=== PATIENT | female | born 2000 | race African-American/Black ===

== ENCOUNTER 2020-04-20 14:47 | Emergency (ER) | payer OTHER ==
[~2020-04-20] VITALS: Ht 160 cm; Wt 63.5 kg
[2020-04-20] MEDS ORDERED: RT-ALBUTEROL/IPRATROPIUM 3 ML (DUONEB) VIAL ONE (14:49)
[2020-04-20 14:55] VITALS: BP 129/79
--- NOTE | 2020-04-20 14:58 | ED Cough/URI ---
General Stated Complaint: ASTHMA ATTACK Source: patient, EMS Exam Limitations: no limitations History of Present Illness Date Seen by Provider: Apr 20, 2020 Time Seen by Provider: 14:49 Initial Comments To ER by [facility] with reports of asthma exacerbation. History of asthma. Has an inhaler at home. She was cooking when it became smoky and this incited AN asthma attack. She was unable to control this with her inhaler at home. EMS arrived and gave an albuterol treatment. Patient also states that she has a history of hypokalemia. She would like to have her potassium checked. Timing/Duration: constant Severity/Quality: moderate Associated Symptoms: cough, wheezing Allergies and Home Medications Allergies Coded Allergies: ceftriaxone (Verified Allergy, Unknown, 04/20/20) promethazine (Verified Allergy, Unknown, 04/20/20) Patient Home Medication List Home Medication List Reviewed: Yes Review of Systems Review of Systems Constitutional: see HPI EENTM: see HPI Respiratory: see HPI, cough, wheezing Cardiovascular: no symptoms reported Genitourinary: no symptoms reported Musculoskeletal: no symptoms reported Skin: no symptoms reported Psychiatric/Neurological: No Symptoms Reported Physical Exam Vital Signs - First Documented 04/20/20 04/20/20 14:55 15:08 Temp 36.6 Pulse 128 Resp 21 B/P (MAP) 129/79 (96) Pulse Ox 100 O2 Delivery Room Air Capillary Refill : Height: '" Weight: lbs. oz. kg; BMI Method: General Appearance: WD/WN, no apparent distress, other (She is in no respiratory distress oxygen saturation 100% on room air though she does have a persistent and intrusive cough. She has good air movement without wheezing.) Eyes: Bilateral Eye Normal Inspection, Bilateral Eye PERRL Neck: non-tender, full range of motion Respiratory: no respiratory distress, no accessory muscle use; No wheezing Gastrointestinal: normal bowel sounds, soft Extremities: normal range of motion, non-tender Neurologic/Psychiatric: alert, normal mood/affect, oriented x 3 Skin: normal color, warm/dry Progress/Results/Core Measures Suspected Sepsis SIRS Temperature: Pulse: Respiratory Rate: Laboratory Tests 04/20/20 15:17: White Blood Count 6.3 Blood Pressure / Mean: Laboratory Tests 04/20/20 15:17: Creatinine 0.88, Platelet Count 219 Results/Orders Lab Results Laboratory Tests Test 04/20/20 15:17 Range/Units White Blood Count 6.3 4.3-11.0 10^3/uL Red Blood Count 5.02 3.80-5.11 10^6/uL Hemoglobin 13.9 11.5-16.0 g/dL Hematocrit 42 35-52 % Mean Corpuscular Volume 84 80-99 fL Mean Corpuscular Hemoglobin 28 25-34 pg Mean Corpuscular Hemoglobin Concent 33 32-36 g/dL Red Cell Distribution Width 12.2 10.0-14.5 % Platelet Count 219 130-400 10^3/uL Mean Platelet Volume 9.5 9.0-12.2 fL Immature Granulocyte % (Auto) 1 % Neutrophils (%) (Auto) 46 42-75 % Lymphocytes (%) (Auto) 46 H 12-44 % Monocytes (%) (Auto) 7 0-12 % Eosinophils (%) (Auto) 1 0-10 % Basophils (%) (Auto) 0 0-10 % Neutrophils # (Auto) 2.9 1.8-7.8 10^3/uL Lymphocytes # (Auto) 2.9 1.0-4.0 10^3/uL Monocytes # (Auto) 0.4 0.0-1.0 10^3/uL Eosinophils # (Auto) 0.1 0.0-0.3 10^3/uL Basophils # (Auto) 0.0 0.0-0.1 10^3/uL Immature Granulocyte # (Auto) 0.0 0.0-0.1 10^3/uL Sodium Level 141 135-145 MMOL/L Potassium Level 2.9 L 3.6-5.0 MMOL/L Chloride Level 109 H 98-107 MMOL/L Carbon Dioxide Level 18 L 21-32 MMOL/L Anion Gap 14 5-14 MMOL/L Blood Urea Nitrogen 12 7-18 MG/DL Creatinine 0.88 0.60-1.30 MG/DL Estimat Glomerular Filtration Rate > 60 BUN/Creatinine Ratio 14 Glucose Level 107 H 70-105 MG/DL Calcium Level 9.2 8.5-10.1 MG/DL My Orders Orders - SHIRA PIERRE APRN Chest 1 View, Ap/Pa Only (04/20/20 14:52) Cbc With Automated Diff (04/20/20 14:52) Basic Metabolic Panel (04/20/20 14:52) Hydrocodone/Apap 5/325 Tablet (Lortab 5 (04/20/20 15:00) Albuterol Pre-Mix Nebs (Rt) (Proventil (04/20/20 15:00) Svn Small Volume Nebulizer (04/20/20 14:52) Potassium Chloride (Tablet) (K Dur Table (04/20/20 15:45) Medications Given in ED Current Medications Medications Dose Ordered Sig/Rebecca Route Start Time Stop Time Status Last Admin Dose Admin Acetaminophen/ Hydrocodone Bitart 1 tab ONCE ONCE PO 04/20/20 15:00 04/20/20 15:01 DC 04/20/20 15:06 1 TAB Albuterol/ Ipratropium 3 ml STK-MED ONCE .ROUTE 04/20/20 14:49 04/20/20 14:54 DC 04/20/20 15:07 3 ML Vital Signs/I&O 04/20/20 04/20/20 14:55 15:08 Temp 36.6 Pulse 128 Resp 21 B/P (MAP) 129/79 (96) Pulse Ox 100 O2 Delivery Room Air Room Air Capillary Refill : Departure Communication (Admissions) [id number]-well, cough has subsided she is feeling better. No shortness of breath. She states that she has prednisone at home that was just called in by her primary care provider. She has a sufficient supply of albuterol for nebulizer and inhaler. Impression Primary Impression: Asthma exacerbation Disposition: HOME, SELF-CARE Condition: Stable Departure-Patient Inst. Decision time for Depature: 14:57 Patient Instructions: Asthma, Adult ED Add. Discharge Instructions: 1. Return to ER for any concerns. Follow-up with your doctor this week for recheck. SHIRA PIERRE APRN Apr 20, 2020 14:58
[2020-04-20] MEDS ORDERED: HYDROcodone/APAP 5 MG/325 MG (LORTAB) TAB PO ONE (15:00)
[2020-04-20] MEDS ORDERED: RT-ALBUTEROL SULF 2.5 MG/3 ML PRE-MIX VIAL INH SCH (15:00)
[2020-04-20 15:37] LABS: CHLORIDE 109 MMOL/L (98-107); POTASSIUM 2.9 MMOL/L (3.6-5.0); SODIUM 141 MMOL/L (135-145)
[2020-04-20 15:38] LABS: CALCIUM 9.2 MG/DL (8.5-10.1)
[2020-04-20 15:39] LABS: GLUCOSE 107 MG/DL (70-105)
[2020-04-20 15:40] LABS: CARBON DIOXIDE 18 MMOL/L (21-32)
--- NOTE | 2020-04-20 15:42 | Diagnostic Imaging Report ---
INDICATION: Cough. COMPARISON: None available. TECHNIQUE: Single frontal radiograph of the chest dated April 20, 2020. FINDINGS: The cardiac silhouette and pulmonary vasculature are within normal limits. The lungs are clear. No pleural effusion. No pneumothorax. No acute osseous abnormality. IMPRESSION: No acute cardiopulmonary abnormality. Dictated by: Dictated on workstation # [id number]
[2020-04-20 15:43] LABS: BASOPHILS % (AUTO) 0 % (0-10); CREATININE SERUM 0.88 MG/DL (0.60-1.30); EOSINOPHILS # (AUTO) 0.1 10^3/uL (0.0-0.3); EOSINOPHILS % (AUTO) 1 % (0-10); GFR ESTIMATED > 60; HEMATOCRIT 42 % (35-52); HEMOGLOBIN 13.9 g/dL (11.5-16.0); LYMPHOCYTES # (AUTO) 2.9 10^3/uL (1.0-4.0); LYMPHOCYTES % (AUTO) 46 % (12-44); MEAN CORPUSCULAR HEMOGLOBIN 28 pg (25-34); MEAN CORPUSCULAR HGB CONC 33 g/dL (32-36); MEAN CORPUSCULAR VOLUME 84 fL (80-99); MEAN PLATELET VOLUME 9.5 fL (9.0-12.2); MONOCYTES # (AUTO) 0.4 10^3/uL (0.0-1.0); MONOCYTES % (AUTO) 7 % (0-12); NEUTROPHILS # (AUTO) 2.9 10^3/uL (1.8-7.8); NEUTROPHILS % (AUTO) 46 % (42-75); PLATELET COUNT 219 10^3/uL (130-400); WHITE BLOOD COUNT 6.3 10^3/uL (4.3-11.0)
[2020-04-20 15:44] LABS: BUN/CREATININE RATIO 14
[2020-04-20] MEDS ORDERED: KCL 20 MEQ TAB (K-DUR) PO ONE (15:45)
== END 2020-04-20 15:57 | disposition home or self-care (01) ==
LOC: ER 14:49
DX: J45.901 Unspecified asthma with (acute) exacerbation (principal); Z88.1 Allergy status to other antibiotic agents; Z88.8 Allergy status to other drugs, medicaments and biological substances
CPT/HCPCS: 36415; 71045; 80048; 85025; 94640